=== PATIENT | male | born 1985 | race Caucasian/White ===

== ENCOUNTER 2017-08-20 23:36 | Inpatient (IN) | payer OTHER ==
[~2017-08-20] VITALS: Ht 182.9 cm; Wt 83.9 kg
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
[2017-08-21 00:19] LABS: ABSOLUTE BASOPHIL COUNT 0.1 /CUMM (0.0-0.2); ABSOLUTE EOSINOPHIL COUNT 0.2 /CUMM (0.0-0.7); ABSOLUTE LYMPH COUNT 4.1 /CUMM (1.2-3.4); ABSOLUTE MONOCYTE COUNT 0.8 /CUMM (0.10-0.60); BASOPHIL % 0.5 % (0.0-2.0); EOSINOPHIL % 1.2 % (0-5); GRANULOCYTE % 61.3 % (42.2-75.2); MEAN CORPUSCULAR HGB 31.3 PG (27.0-31.0); MEAN CORPUSCULAR HGB CONC 34.4 G/DL (33.0-37.0); MEAN CORPUSCULAR VOLUME 91.1 FL (80.0-94.0); MEAN PLATELET VOLUME 8.7 FL (7.4-10.4); PLATELET COUNT 290 /CUMM (130-400); RBC DISTRIBUTION WIDTH 12.6 % (11.5-14.5); RED BLOOD CELL CT 4.61 /CUMM (4.70-6.10)
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
--- NOTE | 2017-08-21 16:54 | CT SCAN REPORT ---
EXAMINATION: CT ABDOMEN AND PELVIS WITHOUT CONTRAST CLINICAL INFORMATION: Diffuse abdominal pain COMPARISON: None TECHNIQUE: Multidetector volumetric imaging was performed from the superior aspect of the liver through the pubic symphysis. Sagittal and coronal reformatted images were obtained on the radiologist workstation. DLP: 286 mGy-cm FINDINGS: LUNG BASES: The visualized lung bases are unremarkable. LIVER, GALLBLADDER, AND BILIARY TREE: The liver is normal in size, shape, and attenuation. No focal hepatic lesion or biliary ductal dilatation is present. The gallbladder is unremarkable with no evidence of radiopaque gallstones, gallbladder wall thickening, or obvious pericholecystic inflammatory changes. PANCREAS: Unremarkable. SPLEEN: Unremarkable. ADRENAL GLANDS: Unremarkable. KIDNEYS AND URETERS: The kidneys are normal in size, shape, and attenuation. No hydronephrosis, hydroureter, or calculi seen. No perinephric stranding. BLADDER: Unremarkable. GASTROINTESTINAL TRACT: There are a few colonic diverticula without evidence of diverticulitis. There is moderate stool throughout the colon. The appendix is normal in caliber without surrounding stranding. There is some high density within its lumen which may reflect inspissated material/appendicoliths. Loops of small bowel appear unremarkable. ABDOMINAL WALL: No significant hernia is appreciated. LYMPH NODES: Accounting for loops of unopacified small bowel there is no evidence of adenopathy. VASCULAR: The aorta is normal in caliber. PELVIC VISCERA: Unremarkable. OSSEOUS STRUCTURES: There are 5 nonrib-bearing lumbar type vertebral bodies. Minor degenerative changes at L3-L4, L4-L5, and L5-S1. No spondylolysis or scoliosis. No acute osseous abnormality. IMPRESSION: No acute intra-abdominal or intrapelvic pathology is visualized. The appendix is normal in caliber without surrounding stranding. There is intraluminal density which suggests inspissated material/appendicoliths. Few colonic diverticula without diverticulitis.
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
[2017-08-22 19:24] VITALS: BP 126/67
[2017-08-23 07:44] VITALS: BP 119/68
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
[2017-08-23 12:06] VITALS: BP 108/60
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
[2017-08-23 16:03] VITALS: BP 111/61
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
[2017-08-23 19:39] VITALS: BP 124/66
[2017-08-24 07:28] VITALS: BP 122/63
[2017-08-24 12:06] VITALS: BP 127/75
--- NOTE | 2017-08-24 13:08 | Patient Discharge Instructions ---
Psych Discharge Inst General Discharge Information Reason for Admission: Psy Discharge Primary Diag+ Other Specified Anxiety D Psy Discharge Secondary Diag+ Opioid Use Disorder Summary Tests/Major Procedures The patient's urine toxicology was positive for opiates and cannabis Studies Pending at DC: None Patient Instructions Contact Information Your Psychiatrist on [facility] was Jeremiah Aguayo MD * If you are experiencing an emergency related to this hospitalization, please call [phone] to contact the treating psychiatrist or the psychiatrist-on- call. * To Request a copy of your medical records, please contact the Medical Records Department at [phone]. * To request results of studies pending at the time of discharge, please call [phone]. * Continue your Medications until directed to stop by your Healthcare provider. General Medication Information Please continue to take your new medications and your continued home medications , unless otherwise indicated on your discharge medication list, or unless directed by your MD or MAINFRAME PROGRAMMER to stop them. Special Instructions Diet Regular Activity As Tolerated - Tobacco Use Treatment Offered Post DC Medications Offered: Script Given-See Med List Post DC Tobacco Treatment Plan: Refused Tobacco Tx Pgm - EtOH/Drug Use D/O Treatment Offered Post DC Medications Offered: Med Not Indicated for D/O Post DC EtOH/SubAbuse TX Plan: [facility] SubAbuse/Dual IOP Program Appt Date: 08/27/17 Program Appt Time: 1130 Metabolic Screening ([X]) Not Applicable, patient not on a neuroleptic. Advance Directives Does the Patient have Medical Advance Directives No/Refused further info Does Pt have Psychiatric Advance Directives? No/Refused further info Does Patient have a Designated Surrogate Decision Maker: No Information About Psychiatric Advance Directives Provided? Refused Discharge Plan Post Hospital Treatment Plan: Dual Track IOP
[2017-08-24] MEDS ORDERED: NICOTINE PATCH1 EAC3 TOP (13:13)
[2017-08-24] MEDS ORDERED: DICLOFENAC SODI75 M2 PO (13:24)
[2017-08-24] MEDS ORDERED: SEROQUEL50 M1 PO (13:24)
[2017-08-24] MEDS ORDERED: ZOLOFT100 M1 PO (13:24)
[2017-08-24] MEDS ORDERED: CHLORPROMAZINE25 M2 PO (13:24)
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
--- NOTE | 2017-08-24 18:19 | SOCIAL WORKER PROG NOTE PSYCH ---
Social Work Progress Note Progress Note Dr. Aguayo and this policy writer typist spoke with patient's , Daniela Fleming, by phone. She discussed concerns that she had leading up to this admission and reported that she has observed improvements with his mood and symptoms. When asked about safety concerns, Daniela denied, stating, "Do I think he's gonna hurt himself? No, that I don't." She denied that there were any guns in the home and was agreeable to discharge today. She stated that she would make sure that he is able to attend the [facility] intake on Sunday, 08/27, at 11:30am. She was informed that the patient would be provided with crisis numbers and warm lines. This policy writer typist met with patient. He denied SI/HI/AH/VH and appeared much more alert than yesterday with brighter mood. Patient identified a safety plan to "call my , or my doctor or my mother." He was also agreeable to utilizing the crisis numbers and warm lines, provided upon discharge. Patient has been using a walker on this unit and stated that he has cane to use at home and does not need a walker. He accepted the [facility] intake for 08/27/17 at 11:30am and stated that his would be providing transportation home from the hospital today. Faxed Referral(s) Referred To: [facility] Transition of Care Documents sent: Health Summary Faxed to: [facility] Fax #: [phone] Faxed by: Jose Marcelino LCSW Date faxed: 08/24/17 Time Faxed: [phone]
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
--- NOTE | 2017-08-27 17:05 | SOCIAL WORKER PROG NOTE PSYCH ---
Social Work Progress Note Progress Note Phoned discharge clinical to Shawn/ANTELMO - #[phone], ext. [phone] as provided by Ruth Marcelino LCSW. Asked reviewer, Shawn to return call to Ruth Marcelino LCSW with confirmation he received this clinical and with AUTH number. Also, requested call back with AUTH for IOP (left clinical for this as well). Asked for Shawn/Antelmo to call back Ruth Marcelino LCSW with this AUTH as well.
== END 2017-08-24 14:38 | DRG 880 ==
LOC: ERH 23:36 → ERHI 08-22 16:03 → CP SOUTH 08-22 16:03 → ENTRNSPT 08-22 18:29 → EDTRNSPTSTS 08-22 18:40 → CMPTRNSPT 08-22 19:03 → CP SOUTH 08-22 19:07
PROVIDERS: Pediatrics
DX: F41.8 Other specified anxiety disorders (principal); F11.90 Opioid use, unspecified, uncomplicated
CPT/HCPCS: 74176; 80305; 80307; 96372; G0463; G0480; J1200; J1630

== ENCOUNTER 2017-09-08 17:42 | Inpatient (IN) | payer OTHER ==
[~2017-09-08] VITALS: Ht 182.9 cm; Wt 80.7 kg
[~2017-09-08 17:42] MED LIST: CHLORPROMAZINE25 M2 PO; DICLOFENAC SODI75 M2 PO; NICOTINE PATCH1 EAC3 TOP; SEROQUEL50 M1 PO; ZOLOFT100 M1 PO
[2017-09-08 18:52] LABS: ABSOLUTE BASOPHIL COUNT 0.1 /CUMM (0.0-0.2); ABSOLUTE EOSINOPHIL COUNT 0.3 /CUMM (0.0-0.7); ABSOLUTE GRANULOCYTE CT 7.9 /CUMM (1.4-6.5); ABSOLUTE LYMPH COUNT 3.8 /CUMM (1.2-3.4); ABSOLUTE MONOCYTE COUNT 0.7 /CUMM (0.10-0.60); BASOPHIL % 0.7 % (0.0-2.0); EOSINOPHIL % 2.6 % (0-5); GRANULOCYTE % 61.5 % (42.2-75.2); HEMATOCRIT 40.7 % (42-52); MEAN CORPUSCULAR HGB 31.3 PG (27.0-31.0); MEAN CORPUSCULAR HGB CONC 33.8 G/DL (33.0-37.0); MEAN CORPUSCULAR VOLUME 92.7 FL (80.0-94.0); MEAN PLATELET VOLUME 8.1 FL (7.4-10.4); PLATELET COUNT 343 /CUMM (130-400); RBC DISTRIBUTION WIDTH 13.1 % (11.5-14.5); RED BLOOD CELL CT 4.39 /CUMM (4.70-6.10); WHITE BLOOD CELL COUNT 12.9 /CUMM (4.8-10.8)
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
[2017-09-08] MEDS ORDERED: QUETIAPINE FUM200 M1 PO (21:27)
[2017-09-08] MEDS ORDERED: BUPRENORPHIN-N1 EACH SL (21:29)
--- NOTE | 2017-09-08 22:11 | CT SCAN REPORT ---
EXAMINATION: CT ABD PELVIS W/O IV CONTRAS CLINICAL INFORMATION: SBO COMPARISON: July 2017 TECHNIQUE: Multidetector volumetric imaging was performed from the superior aspect of the liver through the pubic symphysis Study done without contrast. Sagittal and coronal reformatted images were obtained on the technologist's workstation. DLP: SBO mGy-cm FINDINGS: LOWER THORAX: Included lung bases are clear. HEPATOBILIARY: No focal hepatic lesions. No biliary ductal dilatation. GALLBLADDER: Gallbladder unremarkable. SPLEEN: Spleen is normal in size. PANCREAS: No focal mass or ductal dilatation. STOMACH AND GASTROINTESTINAL TRACT: Stomach is grossly unremarkable. Excess amount of stool in the colon suggesting possible constipation. No CT evidence of appendicitis. ADRENALS: No adrenal nodules. KIDNEYS/URETERS: No hydronephrosis, stones or solid mass lesions. URINARY BLADDER: Unremarkable PELVIC VISCERA: Unremarkable PERITONEUM: No free air or fluid. LYMPH NODES: No lymphadenopathy. VASCULAR:Abdominal aorta normal in size, no aneurysm found. BONES, ABDOMINAL WALL AND SOFT TISSUES: Age-appropriate changes of the spine and skeletal system, no destructive osteolytic or osteosclerotic bone lesion found IMPRESSION: 1. No CT evidence of acute intra-abdominal process to explain patient's pain symptoms, excess amount of stool in the colon suggests possible constipation. 2. No evidence of appendicitis.
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
--- NOTE | 2017-09-09 11:52 | ED PSY CRISIS COLLATERAL NOTE ---
Collateral Note Collateral Note Family/Inform/David Contacts: 09/09/17 Crisis Re-Assessment: Pt alert and oriented with goal directed speech. While in the ED the pt has remained calm and cooperative. Pt continues to report SI with intent. Pt denies HI, AH and VH. Pt stated he is in agreement with the plan for hospitalization. Discussed Crisis continues to search for a bed. *This note was documented as a collateral note due to an unknown technical problem allowing it to be signed as an addendum to the Crisis Consult.
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
[2017-09-10 15:53] VITALS: BP 120/63
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
[2017-09-10 19:34] VITALS: BP 105/50
[2017-09-11 07:36] VITALS: BP 102/57
[2017-09-11 12:07] VITALS: BP 112/64
[2017-09-11 15:48] VITALS: BP 113/58
--- NOTE | 2017-09-11 17:10 | SOCIAL WORKER PROG NOTE PSYCH ---
Social Work Progress Note Progress Note This tag writer met with patient. He reported that he had been attending IOP, however was experiencing increased depression and SI leading to this admission. Patient admitted to requesting discharge too early during last admission due to feeling restless and wanting to leave. He stated that he will not do this this time as "I am here for myself." Patient identified his drug of choice as "pills ", however stated that he has been taking Suboxone as prescribed which he finds effective and helpful in managing his pain. He denied any MJ use. Patient stated that he would like to go to an inpatient rehab program. Patient reported current SI with no plan and stated that he feels safe here. He denied HI/AH/VH. He reported experiencing flashbacks at times. He would like to be referred to an inpatient rehab programs. Patient asked questions (i.e. being able to continue Suboxone and different program approaches such as 12 Step). This tag writer encouraged him to create a list of questions. He agreed to contact rehabs tomorrow that he would be interested in going to. He is also interested in meeting with a assistant wrestling coach healthcare administration internship at next time she is here. This tag writer left a message for Isabel crisis director of social media marketing, inquiring about the healthcare administration internship's hours. Patient is agreeable to a family meeting with his , Daniela.
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
[2017-09-11 19:49] VITALS: BP 131/71
[2017-09-12] VITALS (7 sets, daily range): BP systolic 124–143; BP diastolic 64–77
--- NOTE | 2017-09-12 14:16 | PN- Att Addend ---
Attending Addendum Attending Brief Note S: Called to evaluate patient with localized RLQ abdominal pain. O: VS: Vital Signs Date Time Temp Pulse Resp B/P B/P Pulse O2 O2 Flow FiO2 Mean Ox Delivery Rate 09/12 1221 87 129/70 09/12 0731 98.9 71 128/68 Current Medications Sig/Ravi Start time Last Medication Dose Route Stop Time Status Admin Acetaminophen 650 MG Q4P PRN 09/10 1515 AC 09/12 PO 0727 Al Hydroxide/Mg 30 ML Q4-6 PRN PRN 09/10 1515 AC Hydroxide PO Benztropine Mesylate 1 MG Q6P PRN 09/10 1515 DC 09/11 PO 0949 Benztropine Mesylate 1 MG Q6P PRN 09/10 1515 DC IM Buprenorphine/ 1 TAB TID 09/08 2246 AC 09/12 Naloxone SL 1338 Chlorpromazine 50 MG Q4 HRS NEEDED PRN 09/11 1445 AC 09/11 PO 2157 Chlorpromazine 50 MG Q4 HRS NEEDED PRN 09/11 1430 DC PO Docusate Sodium 100 MG BID 09/10 2100 AC 09/12 PO 0835 Haloperidol 5 MG .STK-MED ONE 09/11 1732 DC PO 09/11 1733 Haloperidol 5 MG Q6P PRN 09/10 1515 AC 09/12 PO 1129 Haloperidol 5 MG Q6P PRN 09/10 1515 DC IM Lorazepam 2 MG Q6P PRN 09/10 1515 DC 09/11 PO 0644 Lorazepam 2 MG Q6P PRN 09/10 1515 DC IM Magnesium Hydroxide 30 ML AT BEDTIME NEED.. 09/10 1515 AC PO Nicotine 21 MG DAILY NEEDED 09/09 2100 AC 09/12 TOP 1129 Polyethylene Glycol 17 GM DAILY PRN 09/10 1630 AC 09/12 PO 0835 Quetiapine Fumarate 300 MG QPM 09/12 2100 AC PO Quetiapine Fumarate 400 MG QPM 09/09 2100 DC 09/11 PO 2156 Senna 374 MG QPM 09/10 2100 DC 09/11 PO 2156 Sertraline HCl 150 MG 0800 09/12 0800 AC 09/12 PO 0836 Sertraline HCl 100 MG 0800 09/09 0800 DC 09/11 PO 0945 Sodium Phosphate 1 UNIT ONCE ONE 09/12 0415 DC 09/12 FL 09/12 6191 4088 Physical Exam: Chest: clear Cor: RRR nl S1, S2 w/o murm Abd: BS+, soft, + focal tenderness RLQ with sl guarding w/o rebound Impression/Plan: #Abdominal Pain- on admission the patient had mild diffuse tenderness felt secondary to constipation. He has had bowel movement since oral treatment and enema. Abdomen is now soft and tenderness is clearly localized to RLQ. May be related to residual stool in cecal area, however concern regarding potential appendicitis. No fever. Plan: Agree with checking CBC (WBC). Will draw today instead of in morning. CT scan of the abd/pelvis with IV/PO contrast today (had negative CT on admission, however exam has changed). Tylenol for pain.
[2017-09-12 15:18] LABS: ABSOLUTE EOSINOPHIL COUNT 0 /CUMM (0.0-0.7); ABSOLUTE MONOCYTE COUNT 1.8 /CUMM (0.10-0.60); EOSINOPHIL % 0 % (0-5)
[2017-09-12 15:24] LABS: ABSOLUTE BASOPHIL COUNT 0 /CUMM (0.0-0.2); ABSOLUTE LYMPH COUNT 1.6 /CUMM (1.2-3.4); BASOPHIL % 0.1 % (0.0-2.0); GRANULOCYTE % 83.4 % (42.2-75.2); HEMATOCRIT 39.2 % (42-52); MEAN CORPUSCULAR HGB 31.3 PG (27.0-31.0); MEAN CORPUSCULAR HGB CONC 34.7 G/DL (33.0-37.0); MEAN CORPUSCULAR VOLUME 90.2 FL (80.0-94.0); MEAN PLATELET VOLUME 8.3 FL (7.4-10.4); PLATELET COUNT 321 /CUMM (130-400); RED BLOOD CELL CT 4.34 /CUMM (4.70-6.10)
[2017-09-12 15:44] LABS: WHITE BLOOD CELL COUNT 20.4 /CUMM (4.8-10.8)
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
--- NOTE | 2017-09-12 17:41 | SOCIAL WORKER PROG NOTE PSYCH ---
Social Work Progress Note Progress Note This tag writer spoke with Ty at [facility] at 10:42am today for a concurrent review. Ty authorized ongoing inpatient admission; next review due on 09/14/17, scheduled for 2:30pm. Ty will also provide a list on rehab programs that are in network with [facility]. 3:10pm This tag writer attempted to meet with patient. He refused and requested to wait until tomorrow as he was in alot of physical pain.
--- NOTE | 2017-09-12 18:11 | CT SCAN REPORT ---
EXAMINATION: CT ABDOMEN AND PELVIS WITH CONTRAST CLINICAL INFORMATION: 31-year-old male with right lower quadrant abdominal pain for several days. Evaluate for appendicitis. COMPARISON: 08/21/2017 and 09/08/2017. TECHNIQUE: Multidetector volumetric imaging was performed of the abdomen and pelvis following IV administration of 95 mL of Optiray 320 intravenous contrast. Sagittal and coronal reformatted images were obtained on the technologist's workstation. DLP: 398 mGy-cm FINDINGS: LUNG BASES: No acute findings. A small, 0.4 cm triangular shaped pleural-based nodule of the right middle lobe likely represents a lymph node. No pulmonary consolidation or pleural effusion. LIVER, GALLBLADDER, AND BILIARY TREE: Liver has normal size, contour and attenuation. Gallbladder is unremarkable. No intrahepatic or extrahepatic bile duct dilatation. PANCREAS: Unremarkable. SPLEEN: Unremarkable. ADRENAL GLANDS: Unremarkable. KIDNEYS AND URETERS: Kidneys are normal in size and enhance symmetrically. No nephrolithiasis, hydronephrosis or perinephric edema. The ureters are unremarkable. BLADDER: Unremarkable. GASTROINTESTINAL TRACT: Stomach is well distended and has normal wall thickness. Loops of bowel are normal in caliber. No bowel obstruction or pneumoperitoneum. Small amount of contrast material (or appendicolith) of the proximal appendix (axial image 412, series 3). The appendix contains a small amount of gas and fluid. The appendix is distended up to 9-10 mm diameter -- increased in size compared to 09/08/2017. Also, there is new, subtle haziness of the periappendiceal fat. These findings are suspicious for an early presentation of appendicitis. ABDOMINAL WALL: Unremarkable. LYMPH NODES: No pathologic sized lymph nodes in the abdomen or pelvis. VASCULAR: Unremarkable. PELVIC VISCERA: Prostate gland is unremarkable. No pelvic mass or free fluid. OSSEOUS STRUCTURES: Small Schmorl's nodes at inferior endplates of the L3 and L4 vertebral bodies. No suspicious bone lesions. IMPRESSION: The appendix has become distended up to 9-10 mm diameter and there is subtle haziness of periappendiceal fat. Findings are suspicious for an early presentation of appendicitis. The test result was discussed with Dr. Lara at 5:56 pm on 09/12/2017 and it was ascertained that the content and the importance of the findings was understood at the time of the direct communication.
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
[2017-09-13] MEDS ORDERED: ACETAMINOPHEN500 M4 PO (07:32)
[2017-09-13] MEDS ORDERED: MIRALAX119 GM PO (07:32)
[2017-09-13] MEDS ORDERED: COLACE100 M1 PO (07:32)
[2017-09-13] MEDS ORDERED: QUETIAPINE FUM100 M1 PO (07:32)
[2017-09-13] MEDS ORDERED: SERTRALINE HCL50 MG PO (07:32)
[2017-09-13] MEDS ORDERED: CHLORPROMAZINE25 M2 PO (07:32)
[2017-09-13] MEDS ORDERED: IBUPROFEN800 M1 PO (07:32)
[2017-09-13] MEDS ORDERED: BUPRENORPHIN-N1 EACH SL (07:32)
[2017-09-13] MEDS ORDERED: AUGMENTIN 875-1 EACH PO (07:34)
[2017-09-13] MEDS ORDERED: NICOTINE PATCH1 EAC3 TOP (07:55)
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
--- NOTE | 2017-09-13 08:57 | Patient Discharge Instructions ---
Psych Discharge Inst General Discharge Information Reason for Admission: He reportedly said he wanted to join his father Psy Discharge Primary Diag+ Bipolar Disorder Psy Discharge Secondary Diag+ PTSD Summary Tests/Major Procedures Lab Absolute Granulocytes 17.0 /CUMM H 09/12/17 1455 Gran % 83.4 % H 09/12/17 1455 Hct 39.2 % L 09/12/17 1455 Hgb 13.6 G/DL L 09/12/17 1455 MCV 90.2 FL 09/12/17 1455 RBC 4.34 /CUMM L 09/12/17 1455 WBC 20.4 /CUMM H 09/12/17 1455 Studies Pending at DC: none Patient Instructions Contact Information Your Psychiatrist on [facility] was Olivier ERNANDEZ,Jeremiah * If you are experiencing an emergency related to this hospitalization, please call [phone] to contact the treating psychiatrist or the psychiatrist-on- call. * To Request a copy of your medical records, please contact the Medical Records Department at [phone]. * To request results of studies pending at the time of discharge, please call [phone]. * Continue your Medications until directed to stop by your Healthcare provider. General Medication Information Please continue to take your new medications and your continued home medications , unless otherwise indicated on your discharge medication list, or unless directed by your MD or HEMODIALYSIS LAB TECHNICIAN to stop them. Special Instructions Diet Other Activity Other - Tobacco Use Treatment Offered Post DC Medications Offered: Script Given-See Med List Post DC Tobacco Treatment Plan: Refused Tobacco Tx Pgm - EtOH/Drug Use D/O Treatment Offered Post DC Medications Offered: Script Given-See Med List Post DC EtOH/SubAbuse TX Plan: Refused Post DC Tx Pgm Advance Directives Does the Patient have Medical Advance Directives No/Refused further info Does Pt have Psychiatric Advance Directives? No/Refused further info Does Patient have a Designated Surrogate Decision Maker: No Information About Psychiatric Advance Directives Provided? Refused Discharge Plan Post Hospital Treatment Plan: The patient was transferred to the surgical floor for an emergency appendectomy
--- NOTE | 2017-09-13 18:41 | SOCIAL WORKER PROG NOTE PSYCH ---
Social Work Progress Note Progress Note 3:59pm This check writer left vm for Ty at [facility], ext. [phone], regarding discharge. A call back number was provided.
== END 2017-09-12 19:59 | disposition short-term general hospital (02) | DRG 885 ==
LOC: ERH 17:42 → ERHI 09-10 14:01 → CP SOUTH 09-10 14:01 → ENTRNSPT 09-10 14:30 → EDTRNSPTSTS 09-10 14:52 → EDTRNSPT 09-10 15:02 → CP SOUTH 09-10 15:08 → CMPTRNSPT 09-10 16:23 → ENRESERV 09-10 23:59 → CP SOUTH 09-12 19:59
PROVIDERS: Emergency Medicine; Internal Medicine
DX: F31.9 Bipolar disorder, unspecified (principal); F43.10 Post-traumatic stress disorder, unspecified
CPT/HCPCS: 36415; 74176; 74177; 80307; 81003; G0463; G0480; J0515; J1630

== ENCOUNTER 2017-09-12 20:34 | Observation (INO) | payer OTHER ==
[~2017-09-12] VITALS: Ht 182.9 cm; Wt 78.9 kg
[~2017-09-12 20:34] MED LIST changes: +BUPRENORPHIN-N1 EACH SL; +QUETIAPINE FUM200 M1 PO
--- NOTE | 2017-09-12 22:28 | Event Note ---
Event Note Event Note: Pt hospitalized in [facility] from 09/10 until direct discharge to operating room this evening due to acute appendicitis. Pt admitted to in psych for SI, PMHx includes bipolar disorder, polysubstance abuse, sp lumbar surgery. Noted with abdominal pain localized to RLQ today, found with leukocytosis of 20K and + appendicitis on CT. Brought to OR directly from in psych unit and underwent uncomplicated lap appendectomy. Postoperatively, he will remain on medical observation for IV abx and postop care, 1:1 sitter for SI. Anticipated DC POD1, likely back to in psych. Please refer to all inpatient notes from psych admission for further details, including medical and surgical notes
[2017-09-13] VITALS (7 sets, daily range): BP systolic 100–128; BP diastolic 50–72
[2017-09-13] MEDS ORDERED: QUETIAPINE FUM100 M1 PO (07:32)
[2017-09-13] MEDS ORDERED: ACETAMINOPHEN500 M4 PO (07:32)
[2017-09-13] MEDS ORDERED: MIRALAX119 GM PO (07:32)
[2017-09-13] MEDS ORDERED: COLACE100 M1 PO (07:32)
[2017-09-13] MEDS ORDERED: SERTRALINE HCL50 MG PO (07:32)
[2017-09-13] MEDS ORDERED: CHLORPROMAZINE25 M2 PO (07:32)
[2017-09-13] MEDS ORDERED: BUPRENORPHIN-N1 EACH SL (07:32)
[2017-09-13] MEDS ORDERED: IBUPROFEN800 M1 PO (07:32)
[2017-09-13] MEDS ORDERED: AUGMENTIN 875-1 EACH PO (07:34)
--- NOTE | 2017-09-13 07:39 | Patient Discharge Instructions ---
Discharge Instructions General Discharge Information You were seen/treated for: Appendicitis You had these procedures: Laparoscopic Appendectomy Watch for these problems: Redness, swelling or unusual drainage from incisions. Increased pain, nausea, vomiting, excessive diarrhea, or no bowel movements. Do not soak the wound: Yes Daily wet to dry dressings: No No bath, but you may shower: Yes Other wound care: Remove bandaids tomorrow. White steri strips will fall off on their own. Diet Continue normal diet: Yes Recommended Diet: Regular Activity Full Activity/No Limits: No Activity Self Limited: Yes Pounds, do NOT lift more than: 10 (x 2 weeks) Activity Limited to: Weight bear as tolerated Acute Coronary Syndrome Inclusion Criteria At DC or during hospital stay patient has or had the following: ACS DIAGNOSIS No Discharge Core Measures Meds if any: Prescribed or Continued at Discharge Meds if any: NOT Prescribed or Continued at Discharge Congestive Heart Failure Inclusion Criteria At DC or during hospital stay patient has or had the following: CHF DIAGNOSIS No Discharge Core Measures Meds if any: Prescribed or Continued at Discharge Meds if any: NOT Prescribed or Continued at Discharge Cerebrovascular accident Inclusion Criteria At DC or during hospital stay patient has or had the following: CVA/TIA Diagnosis No Discharge Core Measures Meds if any: Prescribed or Continued at Discharge Meds if any: NOT Prescribed or Continued at Discharge Venous thromboembolism Inclusion Criteria VTE Diagnosis No VTE Type NONE VTE Confirmed by (Test) NONE Discharge Core Measures - Per Current guidelines, there needs to be overlap - treatment for the first 5 days of Warfarin therapy. - If discharged on Warfarin prior to 5 days of - overlap therapy, the patient will need to be - assessed for post discharge needs including - *Post discharge parental anticoagulation - *Warfarin and/or parental anticoagulation education - *Follow up date to check INR post discharge At least 5 days overlap therapy as Inpatient No Meds if any: Prescribed or Continued at Discharge Note: Overlap Therapy is Warfarin and Anticoagulant Meds if any: NOT Prescribed or Continued at Discharge
--- NOTE | 2017-09-13 07:41 | Admission Core Measures ---
Acute Coronary Syndrome (CM) ACS Core Measures Acute Coronary Syndrome Diagnosis No Congestive Heart Failure (NEW) CHF Core Measures Congestive Heart Failure Diagnosis No Cerebrovascular Accident CVA Core Measures CVA/TIA Diagnosis No Venous Thromboembolism VTE Core Bernardo (View Protocol) VTE Risk Factors Surgery No Mechanical VTE Prophylaxis d/t N/A MechProphylax Ordered No VTE Pharm Prophylaxis d/t NA PharmProphylax ordered Problem List As ranked by this Provider includes Assessment & Plan 1. Acute appendicitis 2. S/P appendectomy HOME MEDS Home Med List Acetaminophen 500 MG TABLET 2 TAB PO TID pain Amoxicillin/Potassium Clav (Augmentin 875-125 Tablet) 875 MG-125 MG TABLET 1 TAB PO BID antibiotic for appendicitis Buprenorphine HCl/Naloxone HCl (Buprenorphin-Naloxon 8-2 MG Sl) 8 MG-2 MG TAB.SUBL 1 TAB SL TID pain/hx of opoid abuse Chlorpromazine HCl 25 MG TABLET 50 MG PO Q4 PRN ANXIETY/AGITATION/INSOMNIA Docusate Sodium (Colace) 100 MG CAPSULE 1 CAP PO BID while on pain medications Ibuprofen 800 MG TABLET 1 TAB PO TID PRN pain Polyethylene Glycol 3350 (Miralax) 17 GRAM/DOSE POWDER 17 GM PO DAILY while on pain medication Quetiapine Fumarate 100 MG TABLET 100 MG PO AT BEDTIME DEPRESSION Sertraline HCl 50 MG TABLET 150 MG PO 0800 depression
--- NOTE | 2017-09-13 07:47 | Surg Short-stay <48hrs Dis Sum ---
Visit Information Visit Dates Admission Date: 09/12/17 Discharge Date: 09/13/17 Surgical Short Stay DC Summary Admission Diagnosis: Appendicitis Final Diagnosis: Appendicitis Procedure(s): Laparoscopic Appendectomy Summary/Significant Findings: This is a 31 yo male who was found to have acute appendicitis while admitted to inpatient [facility]. He was discharged from the psychiatry service and admitted to surgery on 09/12/17. He was taken to the operating room same day as admission. Underwent Laparoscopic Appendectomy. Patient tolerated the procedure well. Postoperative course was uncomplicated. He had three doses of Unasyn while admitted and is being discharged on 4 days of Augmentin. Diet was advanced in a stepwise fashion as tolerated. By time of discharge patient was ambulating, voiding, tolerating a regular diet, and pain was well controlled with oral analgesia. Plan is for the patient to follow up with Dr. Valadez in 2 weeks for a postoperative check. He should call sooner with any other problems, questions or concerns. Condition at Discharge: Stable Discharge Disposition: other guardian hospital ([facility] ) Discharge instructions provided to patient/family: Yes Post discharge follow-up plan: Follow up with Dr. Valadez in 2 weeks Copies to: Allyson ERNANDEZ,Geo Dexter
--- NOTE | 2017-09-13 07:53 | PN- General Surgery ---
See Addendum Subjective Subjective: Patient doing well this morning. No overnight events. Has been ambulating, voiding, tolerating clears, and pain is well controlled with current analgesia. No other issues or complaints from patient or nursing. Objective Vital Signs and I&Os Vital Signs Date Time Temp Pulse Resp B/P B/P Pulse O2 O2 Flow FiO2 Mean Ox Delivery Rate 09/13 06 98.4 78 20 128/68 97 Room Air 09/13 0355 98.4 96 18 100/50 96 09/13 0205 98.4 69 18 122/60 95 Room Air 09/13 0123 Room Air 09/13 0007 98.7 88 18 120/70 95 Intake & Output 09/13 0809/13 0000 09/12 1600 09/12 0800 09/12 0000 09/11 1600 Intake Total 920 Output Total 300 Balance 620 Intake, IV 800 Intake, Oral 120 Number 0 Bowel Movements Output, Urine 300 Patient 174 lb Weight Weight Bed scale Measurement Method Physical Exam: General: A, A, NAD Abdomen: Soft, nondistended, appropriately ttp, bandaids c/d/i with no surrounding edema, erythema or induration Extremities: No clubbing, cyanosis or edema Current Medications: Current Medications Sig/Ravi Start time Last Medication Dose Route Stop Time Status Admin Acetaminophen 1,000 MG Q6P PRN 09/12 2244 AC IV Ampicillin Sodium/ 1,500 MG Q6 09/13 0200 AC 09/13 Sulbactam Sodium IV 09/13 1229 0603 Sodium Chloride 100 ML Buprenorphine/ 1 TAB TID 09/12 2244 09/12 Naloxone SL 2356 Chlorpromazine 50 MG Q4 PRN 09/12 224 PO Dextrose/Sodium 1,000 ML .Q10H 09/12 224 09/13 Chloride IV 0113 Heparin Sodium 5,000 UNIT Q8 09/13 0600 AC 09/13 (Porcine) SC 0603 Ketorolac 15 MG Q8P PRN 09/12 2244 09/12 Tromethamine IV 2357 Ondansetron HCl 4 MG Q6P PRN 09/12 2244 AC IV Promethazine HCl 12.5 MG Q6P PRN 09/12 2245 AC IV 09/19 224 Quetiapine Fumarate 100 MG AT BEDTIME 09/13 2100 AC PO Sertraline HCl 150 MG 0800 09/13 0800 AC PO Assessment/Plan Assessment/Plan This is a 31 yo male who presented with acute appendicitis and is POD#1 s/p Laparoscopic Appendectomy. Doing well. Plan for d/c back to inpatient psychiatry today. In the meantime regular diet, ambulate, PO analgesia, GI/DVT Px, and continue medications for depression, bipolar and polysubstance abuse. Complete Unasyn x3 doses prior to discharge, 4 days of Augmentin there after. Follow up with Dr. Valadez in 2 weeks. Problem List: 1. Acute appendicitis 2. S/P appendectomy Core Measures Venous Thromboembolism VTE Risk Factors Surgery No Mechanical VTE Prophylaxis d/t N/A MechProphylax Ordered No VTE Pharm Prophylaxis d/t NA PharmProphylax ordered
[2017-09-13] MEDS ORDERED: NICOTINE PATCH1 EAC3 TOP (07:55)
--- NOTE | 2017-09-13 11:27 | Operative Report ---
Operative/Inv Procedure Report Surgery Date: 09/12/17 Name of Procedure: Laparoscopic appendectomy Pre-Operative Diagnosis: Acute appendicitis Post-Operative Diagnosis: Same, suppurative Estimated Blood Loss: scant Surgeon/Pottery Decorator: Allyson ERNANDEZ,Geo ORTIZ Anesthesia: general endotracheal tube Operative/Procedure Note Note: Patient was placed on the OR table in the supine position. After successful induction of general anesthesia the patient's abdomen was prepped clipped and draped in the usual sterile fashion The left arm was tucked. Local anesthetic was injected at the top of the umbilicus and entry into the peritoneum was established via the open Don technique: a one cm curved incision was made at the top of the umbilicus, the linea alba was secured between 2 pediatric Brianna clamps and incised vertically, 0-Vicryl stay sutures were placed on each side and then while retracting upwards, the peritoneal layer was entered sharply, then through that small opening, using an S retractor acting like a shoehorn, a 10 mm blunt trocar was inserted obliquely to the right and secured with the stay sutures. The gas was turned on to maximum of 15 mm, two 5 mm dissecting ports were then inserted, one suprapubic and one left lower quadrant, laterally. We used a local anesthetic needle to guide their trajectories, particular attention was given to avoid injury to the bowel, the bladder and the epigastric vessels. Then our attention was directed to the right lower quadrant, the small bowel was swept superiorly and medially, revealing the base of the cecum. An inflamed thickened appendix was then mobilized by it from the lateral and inferior peritoneal attachments using cautery. Using a combination of a [place] dissector, peanut dissector and a Jo-Ann clamp, a window was developed between the mesoappendix and the base of the appendix. This window is then used to divide the appendix at the base and the mesoappendix with a linear stapling device, separately, using an intestinal cartridge for the appendix and a vascular cartridge for the mesoappendix; the division of the appendix includes a small flange of cecal base. The appendix is lowered into an Endobag and set aside. The staple lines were checked for bleeding and small oozing was controlled with light zaps of the cautery. We deliberately irrigate the area including up by the liver and down in the pelvis, several rounds, checking the staple lines and each time to make sure that there is no ongoing bleeding. Next the instruments and the trochars and Endobag are removed, letting the gas out. We closed the umbilical fascial incision with a [id number]-pw-ohqab 0 vicryl suture, then the 3 skin incisions are closed with multiple interrupted subcuticular 4-0 Biosyn sutures, 3 for the umbilical, 1 each for the smaller ones, then covered with Mastisol, Steri-Strips and Band-Aids. EBL minimal Lap and sponge and sponge counts: correct Wound expectancy: infected IV fluids: crystalloid Complications: none Patient tolerated the procedure well was awakened and extubated and returned to the recovery room in satisfactory condition.
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
== END 2017-09-13 17:35 | disposition other institution (70) ==
LOC: STS 20:34 → 2NA 22:21 → PACUH 22:21 → 2NA 22:21 → ENRESERV 22:32 → 2NA 22:37 → PACUH 22:37 → ENTRNSPT 22:48 → EDTRNSPT 22:49 → EDTRNSPTSTS 22:49 → PACUH 22:56 → 2NA 22:56 → CMPTRNSPT 22:57 → ENPENDDIS 09-13 07:28 → 2NA 09-13 08:12
DX: K35.80 Unspecified acute appendicitis (principal); M54.5 Low back pain; F32.9 Major depressive disorder, single episode, unspecified; G62.9 Polyneuropathy, unspecified; R45.851 Suicidal ideations; D72.829 Elevated white blood cell count, unspecified; F11.20 Opioid dependence, uncomplicated; K59.00 Constipation, unspecified; F17.200 Nicotine dependence, unspecified, uncomplicated
CPT/HCPCS: 2NASP; 6030; 96372; 96374; 96375; G0378; J0131; J1644

== ENCOUNTER 2017-09-13 15:07 | Inpatient (IN) | payer OTHER ==
[~2017-09-13] VITALS: Ht 182.9 cm; Wt 82.8 kg
[~2017-09-13 15:07] MED LIST changes: +ACETAMINOPHEN500 M4 PO; +AUGMENTIN 875-1 EACH PO; +COLACE100 M1 PO; +IBUPROFEN800 M1 PO; +MIRALAX119 GM PO; +QUETIAPINE FUM100 M1 PO; +SERTRALINE HCL50 MG PO
[2017-09-13 17:56] VITALS: BP 131/73
[2017-09-13 20:22] VITALS: BP 130/61
--- NOTE | 2017-09-14 02:02 | PN- Att Addend ---
Attending Addendum Attending Brief Note 31M PMH chronic low back pain (s/p surgery), substance abuse, anxiety, depression/bipolar disorder admitted initially to [facility] for depression and suicidal ideation, found to have acute appendicitis, transferred to medical floor, underwent laparascopic appendectomy on 09/12 without complication, received Unasyn ashwin-operatively, now transferred back to [facility] for further management. Patient reports feeling well overall. Appetite intact, normal BM. Having some pain at the incision site in the lower abdomen. The area appears to be healing well without erythema, warmth, induration, or fluctuance. He has no other complaints and denies SI at this time. AFVSS NAD NCAT MMM Supple RRR CTAB Soft, NTND, surgical site wounds healing well No c/c/e Pulses intact A&Ox3 no focal deficits 13-point ROS negative Current Medications Sig/Ravi Start time Last Medication Dose Route Stop Time Status Admin Acetaminophen 650 MG Q4P PRN 09/13 1600 AC 09/13 PO 2040 Buprenorphine/ 1 TAB TID 09/13 2100 AC 09/13 Naloxone SL 1931 Chlorpromazine 50 MG Q4 HRS NEEDED PRN 09/13 1530 AC PO Ibuprofen 600 MG Q6P PRN 09/13 1600 AC 09/14 PO 0007 Quetiapine Fumarate 300 MG AT BEDTIME 09/13 2100 AC 09/13 PO 204 Sertraline HCl 150 MG DAILY 09/14 0900 AC PO Vital Signs Date Time Temp Pulse Resp B/P B/P Pulse O2 O2 Flow FiO2 Mean Ox Delivery Rate 09/13 2021 98.5 76 130/61 09/13 1756 99.2 74 131/73 1. Major depressive episode 2. Suicidal ideation 3. Acute appendicitis s/p appendectomy Recommendations - Management of SI and depression per psychiatry - Toradol IM 30mg q8h PRN severe pain - Continue home medications - Follow up with surgery for wound check as outlined in progress notes - Ambulatory for DVT PPx
[2017-09-14 07:35] VITALS: BP 106/50
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
[2017-09-14 12:06] VITALS: BP 110/52
[2017-09-14 15:51] VITALS: BP 109/55
--- NOTE | 2017-09-14 18:28 | SOCIAL WORKER PROG NOTE PSYCH ---
Social Work Progress Note Progress Note This auto service writer met with patient. He complained of pain regarding his surgery and stated that he is in communication with nursing regarding pain management. He described his mood as depressed and was experiencing SI, no plan. He stated that he feels safe on this unit. "I'm worthless, I don't want to be here [alive ]." Patient denied HI/AH/VH. Patient maintains interest in rehab and would like to meet with the gymnastics coach internet marketing consultant later today, as determined by his level of pain. Patient stated liyah the has been using 4-5 80mg pills per day ( Oxycontin) since 2007 with some short (about 1 week) periods of sobriety. Patient stated that he was last in rehab in 2017 in [place]. Patient requested to end this meeting at this time. If he is up to it, he would like to meet with the gymnastics coach internet marketing consultant today and after meeting would like to explore rehab options. Patient stated that he is not interested in any 12 step based programs. Patient met with Nisha Gauthier, gymnastics coach internet marketing consultant, however, was not feeling well enough to meet with this auto service writer afterwards. He agreed to meet again on Sunday. This auto service writer spoke with Ty at [facility] for concurrent review ([phone], ext. [phone]). Additional days were authorized with next review due on 09/17/17 at 3pm. (The start date for this auth/admission is 09/13/17, with auth # [id number]) . This auto service writer left a vm for Ty at 5:30pm today requesting to change the review time on Sunday. A call back number was provided.
[2017-09-14 19:54] VITALS: BP 106/60
[2017-09-15 07:36] VITALS: BP 106/56
[2017-09-15 11:58] VITALS: BP 113/51
--- NOTE | 2017-09-15 12:16 | CP SOUTH PROGRESS NOTE PSYCH ---
Psych (Inpt) Progress Note Progress Note Vital Signs Date Time Temp Pulse Resp B/P B/P Pulse O2 O2 Flow FiO2 09/15 1158 76 113/51 09/15 0736 97.1 78 106/56 09/14 1954 98.4 71 106/60 09/14 1551 82 109/55 Mental Status Examination: The patient uses a walker for mobilization, seemd to be steadier in his gait today. Guarded, distant, Normal psychomotor activity No abnormal or bizarre behaviors, normal speech, not pressured Blunted affect Depressed mood Denied thoughts of suicide today Denied thoughts of homicide today, Denied hallucinations Denied feeling paranoid, there were no delusions during the interview No difficulties with thought organization, coherent Poor insight Poor judgment Alert and oriented to time, place, and person. No significant cognitive deficits. No impairment in short-term memory. Assessment: 31-year-old white male who returns to the inpatient psychiatric unit after having spent one night on the medical surgical floor for an appendectomy. DSM 5 Diagnosis(es): Unspecified depressive disorder Unspecified anxiety disorder Opioid use disorder, on maintenance therapy Cannabis use disorder Other specified personality disorder. Treatment Plan: Continue same medications Impression and Plan: 31-year-old white male who returns to the inpatient psychiatric unit after having spent one night on the medical surgical floor for an appendectomy. - Include all active medical diagnosis that require tx DSM 5 Diagnosis(es): Unspecified depressive disorder Unspecified anxiety disorder Opioid use disorder, on maintenance therapy Cannabis use disorder Other specified personality disorder. - Initial Tx Plan for Active Psych & Medical Conditions Treatment Plan: Inpatient psychiatric care with safety checks every 15 minutes Continue same medications as per his previous treatment episode and (this is practically a continuation of the same episode of care. - Factors that would help patient function - in a less restrictive setting.
[2017-09-15 15:34] VITALS: BP 109/57
[2017-09-15 20:05] VITALS: BP 115/55
[2017-09-16 07:38] VITALS: BP 103/54
--- NOTE | 2017-09-16 08:30 | CP SOUTH PROGRESS NOTE PSYCH ---
Psych (Inpt) Progress Note Progress Note Vital Signs Date Time Temp Pulse B/P B/P Pulse O2 09/16 0738 97.1 68 103/54 09/15 2004 97.7 71 115/55 09/15 1534 73 109/57 09/15 1158 76 113/51 Mental Status Examination: The patient was alert and oriented to time, place, and person. Pt. uses a walker for mobilization, seemd to be steadier in his gait today. He was less guarded and more engagable in conversation today. He showed normal psychomotor activity. There were no abnormal or bizarre behaviors, normal speech, not pressured. He showed blunted affect, Depressed mood , Denied thoughts of suicide today, Denied thoughts of homicide today, Denied hallucinations, Denied feeling paranoid, there were no delusions during the interview. There were no difficulties with thought organization, coherent, there were no significant cognitive deficits. No impairment in short-term memory. Assessment: 31-year-old white male who returns to the inpatient psychiatric unit after having spent one night on the medical surgical floor for an appendectomy. The patient seems to be doing much better today with slightly brighter affect, more engagement in conversation, and some questions about the future plans including discharge date, and a subjective sense of this depression. The patient denied thinking of suicide or wishing . He reports that he still wants to go to drug rehab program Diagnosis(es): Unspecified depressive disorder Unspecified anxiety disorder Opioid use disorder, on maintenance therapy Cannabis use disorder Other specified personality disorder. Treatment Plan Update: Add nicotine gum Continue same other medications
[2017-09-16 11:50] VITALS: BP 106/54
[2017-09-16 15:22] VITALS: BP 106/58
[2017-09-16 19:55] VITALS: BP 119/64
[2017-09-17 07:39] VITALS: BP 110/58
--- NOTE | 2017-09-17 08:51 | CP SOUTH PROGRESS NOTE PSYCH ---
Psych (Inpt) Progress Note Progress Note Vital Signs Date Time Temp Pulse Resp B/P B/P Pulse O2 O2 Flow FiO2 Mean Ox Delivery Rate 09/17 1220 70 110/50 09/17 0739 97.5 59 110/58 09/16 1955 97.2 72 119/64 09/16 1522 70 106/58 Mental Status Examination: The patient was alert and oriented to time, place, and person. He showed normal psychomotor activity. There were no abnormal or bizarre behaviors, normal speech, not pressured. He was more animated and more demanding today. Insisting that he wants to be discharged today he denied thoughts of suicide today, he denied thoughts of homicide today, and denied hallucinations, The patient denied feeling paranoid, there were no delusions during the interview. There were no difficulties with thought organization, coherent, there were no significant cognitive deficits. No impairment in short-term memory. Assessment: 31-year-old white male who returns to the inpatient psychiatric unit after having spent one night on the medical surgical floor for an appendectomy. Diagnosis(es): Unspecified depressive disorder Unspecified anxiety disorder Opioid use disorder, on maintenance therapy Cannabis use disorder Other specified personality disorder. Treatment Plan Update: Discharge home
[2017-09-17 12:20] VITALS: BP 110/50
[2017-09-17] MEDS ORDERED: NICOTINE PATCH1 EAC3 TOP (12:58)
[2017-09-17] MEDS ORDERED: BUPRENORPHIN-N1 EACH SL (12:58)
[2017-09-17] MEDS ORDERED: SERTRALINE HCL50 MG PO (12:58)
[2017-09-17] MEDS ORDERED: CELEBREX200 M1 PO (12:58)
--- NOTE | 2017-09-17 13:58 | Patient Discharge Instructions ---
Psych Discharge Inst General Discharge Information Reason for Admission: "My father in 2007 & I feel I want to be with him." Psy Discharge Primary Diag+ Unspecified Depressive Di Psy Discharge Secondary Diag+ Opioid Use Disorder Summary Tests/Major Procedures Lab Cholesterol 173 MG/DL 08/21/17 0001 Cholesterol/HDL Ratio 4 % 08/21/17 0001 HDL Cholesterol 41 mg/dL 08/21/17 0001 Hemoglobin A1c 5.1 % 08/21/17 0001 LDL Cholesterol, Calc 102 mg/dL 08/21/17 0001 Triglycerides 152 mg/dL H 08/21/17 0001 Studies Pending at DC: None Patient Instructions Contact Information Your Psychiatrist on [facility] was Olivier ERNANDEZ,Jeremiah * If you are experiencing an emergency related to this hospitalization, please call [phone] to contact the treating psychiatrist or the psychiatrist-on- call. * To Request a copy of your medical records, please contact the Medical Records Department at [phone]. * To request results of studies pending at the time of discharge, please call [phone]. * Continue your Medications until directed to stop by your Healthcare provider. General Medication Information Please continue to take your new medications and your continued home medications , unless otherwise indicated on your discharge medication list, or unless directed by your MD or TRANSPLANT IMMUNOLOGIST to stop them. Special Instructions Diet Regular Activity Normal - Tobacco Use Treatment Offered Post DC Medications Offered: Refused Tob Medication Tx Post DC Tobacco Treatment Plan: [facility] Tobacco Tx Pgm - EtOH/Drug Use D/O Treatment Offered Post DC Medications Offered: Script Given-See Med List Post DC EtOH/SubAbuse TX Plan: [facility] SubAbuse/Dual IOP Metabolic Screening Patient on a neuroleptic(s) . Enter below results for Hemoglobin A1C, and lipid panel if obtained during the last 365 days. BMI: 24.93159 Blood Pressure: 110/50 Laboratory Results From [facility] (If applicable): Lab Cholesterol 173 MG/DL 08/21/17 0001 Cholesterol/HDL Ratio 4 % 08/21/17 0001 HDL Cholesterol 41 mg/dL 08/21/17 0001 Hemoglobin A1c 5.1 % 08/21/17 0001 LDL Cholesterol, Calc 102 mg/dL 08/21/17 0001 Triglycerides 152 mg/dL H 08/21/17 0001 Advance Directives Does the Patient have Medical Advance Directives No/Refused further info Does Pt have Psychiatric Advance Directives? No/Refused further info Does Patient have a Designated Surrogate Decision Maker: No Information About Psychiatric Advance Directives Provided? Refused Discharge Plan Post Hospital Treatment Plan: Dual [facility] (Substance Abuse and Mental Health)
[2017-09-17] MEDS ORDERED: SEROQUEL50 M1 PO (14:08)
--- NOTE | 2017-09-17 14:08 | DISCHARGE SUMMARY REPORT-PSYCH ---
Visit Information Visit Dates/Diagnosis' Admission Date: 09/13/17 Discharge Date: 09/17/17 Reason for Admission: "My father in 2007 & I feel I want to be with him." Psy Discharge Primary Diag: Unspecified Depressive Di Psy Discharge Secondary Diag: Opioid Use Disorder Hospital Course Significant Lab Findings: Lab Cholesterol 173 MG/DL 08/21/17 0001 Cholesterol/HDL Ratio 4 % 08/21/172017 HDL Cholesterol 41 mg/dL 08/21/17 0001 Hemoglobin A1c 5.1 % 08/21/17 0001 LDL Cholesterol, Calc 102 mg/dL 08/21/17 0001 Triglycerides 152 mg/dL H 08/21/17 0001 Course Allergies: Coded Allergies: No Known Drug Allergies (NONE 09/10/17) Hospital Course/TX Response: Mental Status Examination: The patient was alert and oriented to time, place, and person. He showed normal psychomotor activity. There were no abnormal or bizarre behaviors, normal speech, not pressured. He was more animated and more demanding today. Insisting that he wants to be discharged today he denied thoughts of suicide today, he denied thoughts of homicide today, and denied hallucinations, The patient denied feeling paranoid, there were no delusions during the interview. There were no difficulties with thought organization, coherent, there were no significant cognitive deficits. No impairment in short-term memory. Assessment: 31-year-old white male who returns to the inpatient psychiatric unit after having spent one night on the medical surgical floor for an appendectomy. Diagnosis(es): Unspecified depressive disorder Unspecified anxiety disorder Opioid use disorder, on maintenance therapy Cannabis use disorder Other specified personality disorder. Treatment Plan Update: Discharge home Discharge HBIPS - Tobacco Use Treatment Offered - EtOH/Drug Use D/O Treatment Offered Metabolic Screening - Screen if on a Neuroleptic Medication - Metabolic screening should include: - Blood Pressure, BMI, Glucose or Hgb A1c, & a - Lipid profile from within the past 365 days. Metabolic Screening Patient on a neuroleptic(s) . Enter below results for Hemoglobin A1C, and lipid panel if obtained during the last 365 days. BMI: Blood Pressure: 110/50 Laboratory Results From [facility] (If applicable): Lab Cholesterol 173 MG/DL 08/21/17 0001 Cholesterol/HDL Ratio 4 % 08/21/17 0001 HDL Cholesterol 41 mg/dL 08/21/17 0001 Hemoglobin A1c 5.1 % 08/21/17 0001 LDL Cholesterol, Calc 102 mg/dL 08/21/17 0001 Triglycerides 152 mg/dL H 08/21/17 0001 Discharge Instructions General Discharge Information Discharge Diet Regular Discharge Activity Normal Referrals Ordered Referrals INTENSIVE OUTPT PSY-SUBSTANCE 09/18/17 [address] [place], [place] [address] [facility] [address], [place] [phone] Intake assessment: 09/18/17, at 10am [facility] 09/19/[address] [place] [address] Smoking Cessation Group [facility] [address], [place] [phone] Group meets every other Sunday at 4pm Next group: 09/19/17, at 4pm Prescriptions Stop taking the following medications: Chlorpromazine HCl (Chlorpromazine HCl) 25 MG TABLET ORAL Every 4 hours as needed for ANXIETY/AGITATION/INSOMNIA Qty = 120 Quetiapine Fumarate (Quetiapine Fumarate) 100 MG TABLET ORAL AT BEDTIME Qty = 30 Ibuprofen (Ibuprofen) 800 MG TABLET ORAL THREE TIMES DAILY as needed for pain Qty = 30 Amoxicillin/Potassium Clav (Augmentin 875-125 Tablet) 875 MG-125 MG TABLET ORAL TWICE DAILY Qty = 8 Continue taking these medications: Nicotine (Nicotine Patch) 21 MG/24 HOUR PATCH.TD24 1 Patch On the skin DAILY Qty = 28 Comments: Last Taken:09/17/17 Time:8am This prescription has been renewed Buprenorphine HCl/Naloxone HCl (Buprenorphin-Naloxon 8-2 MG Sl) 8 MG-2 MG TAB.SUBL 1 Tablet SUBLINGUAL THREE TIMES DAILY Qty = 30 Comments: Last Taken:09/17/17 Time:1:30pm This prescription has been renewed Sertraline HCl (Sertraline HCl) 50 MG TABLET 150 Milligram ORAL DAILY @8 AM Qty = 30 Comments: Last Taken:09/17/17 Time:8am This prescription has been renewed Start taking the following new medications: Celecoxib (Celebrex) 200 MG CAPSULE 200 Milligram ORAL TWICE DAILY Qty = 30 No Refills Comments: Last Taken:09/17/17 Time:8am Quetiapine Fumarate (Seroquel) 50 MG TABLET 1 Tablet ORAL EVERY 6 HOURS NEEDED as needed for anxiety Qty = 60 No Refills Studies Pending at Discharge None
--- NOTE | 2017-09-17 16:59 | SOCIAL WORKER PROG NOTE PSYCH ---
Social Work Progress Note Progress Note This news writer attempted to meet with the patient in the morning. However, patient was sleeping. 1:30pm: This news writer began the live concurrent review with Ty at [facility] ([phone], ext. [phone]). During this call, this news writer was informed that the patient would be discharging today. Ty was informed of this, and agreed to speak with this news writer later in the day; the call ended. This news writer joined the meeting with Aquiles Mayen (medical student) and the patient. Patient wants to discharge today and will sign out AMA. Patient stated that he is not interested in any rehab referrals and will contact them upon discharge and returning home. Patient stated that he would like to return to [facility] while waiting for a rehab bed. Patient was unwilling to remain in the hospital even if if meant that he could go to rehab tonight or tomorrow. Patient agreed to meet with this news writer. Patient denied SI/HI/AH/VH. This news writer asked the patient about reported SI this morning. Patient stated that this was not accurate and stated that he is not suicidal. He attributed his irritability as due to being tired of being in the hospital and wanting to leave. Patient was agreeable to calling his . This news writer and patient spoke with his , Daniela Fleming, , who was informed that the patient is discharging AMA. She stated that she did not have any safety concerns about him discharging today. She was informed that the patient did not want any rehab referrals at this time and would like to return to [facility]. Patient identified a safety plan that he would call his mother or his and was also informed that he would be provided with crisis numbers and warm lines upon discharge. Patient and his denied that there were any weapons or guns nor did he have any access to weapons or guns. Patient was agreeable to this news writer speaking with his without him present. Daniela maintained that she did not have any safety concerns about the patient discharging today. She stated that she would ensure that he would attend [facility]. Daniela stated that she would be able to provide transportation home no earlier than 2:45pm or the patient could schedule an Uber. This was relayed to the patient. This news writer was informed by Eugene Fitzgerald RN, that the patient stated he would schedule an Uber. This news writer spoke with Nancy Quach in order to refer the patient to [facility]. An IOP intake has been scheduled for 09/18/17 at 10am. An sooner intake appointment was not avaialable. Patient accepted the intake appointment. Patient stated that he did not need any additional appointments, nor did he need rehab resources as he has program numbers and information at home. Patient was using a walker on [facility]. He stated that he uses a cane at home, which has been with his belongings here at . 3:35pm: This news writer spoke with Ty at [facility]. He was given discharge clinical, including that patient denied safety concerns and would attend [facility] with an intake tomorrow at 10am with plans to follow up with inpatient/rehab programs from home. Ty stated that there is no auth needed for IOP/PHP level of care. This information was provided to [facility]. Ty stated that the patient's authorization covers the entire inpatient stay (09/13/17-09/16/17). Faxed Referral(s) Referred To: [facility] Transition of Care Documents sent: Health Summary Faxed to: [facility] Fax #: [phone] Faxed by: Jose Marcelino LCSW Date faxed: 09/17/17 Time Faxed: [phone]
== END 2017-09-17 14:33 | DRG 881 ==
LOC: CP SOUTH 15:07
DX: F32.9 Major depressive disorder, single episode, unspecified (principal); F11.90 Opioid use, unspecified, uncomplicated